=== PATIENT | female | born 1950 | race Caucasian/White ===

== ENCOUNTER 2017-06-03 09:37 | Day surgery (SDC) | payer OTHER, BC ==
[~2017-06-03] VITALS: Ht 162.6 cm; Wt 103.0 kg
[~2017-06-03 09:37] MED LIST: ADULT LOW DOSE81 M1 PO; AMITRIPTYLINE H25 MG PO; AMLODIPINE BESYL5 MG PO; ANASPAZ0.125 MG PO; ATORVASTATIN CA80 MG PO; BENADRYL25 MG PO; CALCIUM 600 +1 EACH PO; COZAAR50 MG PO; CRESTOR20 MG PO; DICYCLOMINE HCL20 MG PO; DYAZIDE, MA1 CAPSULE PO; EFFEXOR XR150 MG PO; ESCITALOPRAM OX10 MG PO; ESCITALOPRAM OX20 MG PO; HYDROCHLOROTH12.5 M1 PO; HYOSCYAMINE0.125 M2 PO; KEFLEX500 MG PO; LORAZEPAM0.5 MG PO; MELATONIN3 MG PO; METOPROLOL SUC100 MG PO; METOPROLOL SUCC50 MG PO; NEXIUM20 MG PO; NEXIUM40 MG PO; NITROSTAT0.4 MG SL; PYRIDIUM200 MG PO; RANITIDINE HCL300 MG PO; TRIAMTERENE-HC1 EACH PO; VESICARE5 MG PO; VITAMIN D2000 UNIT PO; VYTORIN 10-801 EACH PO
== END 2017-06-03 11:38 | disposition home or self-care (01) ==
LOC: PAIN 09:37 → SDC 10:15 → PAIN 11:38
DX: M47.26 Other spondylosis with radiculopathy, lumbar region (principal); M48.06 Spinal stenosis, lumbar region; I10 Essential (primary) hypertension; K21.9 Gastro-esophageal reflux disease without esophagitis; Z79.82 Long term (current) use of aspirin; E03.9 Hypothyroidism, unspecified; Z88.2 Allergy status to sulfonamides
CPT/HCPCS: J1100; J2250; J3010

== ENCOUNTER 2017-07-01 08:38 | Day surgery (SDC) | payer BC, OTHER ==
[~2017-07-01] VITALS: Ht 162.6 cm; Wt 104.3 kg
== END 2017-07-01 10:25 | disposition home or self-care (01) ==
LOC: PAIN 08:38 → SDC 09:15 → PAIN 09:15
PROC: 3E0T3CZ (ICD-10-PCS; principal; 2017-07-01)
PROC: 3E0T33Z Introduction of Anti-inflammatory into Peripheral Nerves and Plexi, Percutaneous Approach (ICD-10-PCS; principal; 2017-07-01)
DX: M47.26 Other spondylosis with radiculopathy, lumbar region (principal); F41.9 Anxiety disorder, unspecified; I12.9 Hypertensive chronic kidney disease with stage 1 through stage 4 chronic kidney disease, or unspecified chronic kidney disease; N18.3 Chronic kidney disease, stage 3 (moderate); K21.9 Gastro-esophageal reflux disease without esophagitis; E06.3 Autoimmune thyroiditis; E66.01 Morbid (severe) obesity due to excess calories; Z68.41 Body mass index [BMI] 40.0-44.9, adult; E78.5 Hyperlipidemia, unspecified; Z88.8 Allergy status to other drugs, medicaments and biological substances; Z91.09 Other allergy status, other than to drugs and biological substances
CPT/HCPCS: J1030; J2250; J3010; S0020

== ENCOUNTER 2017-07-12 09:00 | Day surgery (SDC) | payer BC, OTHER ==
[~2017-07-12] VITALS: Ht 161.3 cm; Wt 104.3 kg
[~2017-07-12 09:00] MED LIST changes: +TYLENOL EXTRA500 MG PO
== END 2017-07-12 11:43 | disposition home or self-care (01) ==
LOC: PAIN 09:00 → SDC 14:15
PROC: 3E0T3BZ Introduction of Anesthetic Agent into Peripheral Nerves and Plexi, Percutaneous Approach (ICD-10-PCS; principal; 2017-07-12)
PROC: 3E0T33Z Introduction of Anti-inflammatory into Peripheral Nerves and Plexi, Percutaneous Approach (ICD-10-PCS; 2017-07-12)
DX: M47.26 Other spondylosis with radiculopathy, lumbar region (principal); M41.9 Scoliosis, unspecified; F41.9 Anxiety disorder, unspecified; I12.9 Hypertensive chronic kidney disease with stage 1 through stage 4 chronic kidney disease, or unspecified chronic kidney disease; N18.3 Chronic kidney disease, stage 3 (moderate); E06.3 Autoimmune thyroiditis; E78.5 Hyperlipidemia, unspecified; K21.9 Gastro-esophageal reflux disease without esophagitis; E66.01 Morbid (severe) obesity due to excess calories; Z68.41 Body mass index [BMI] 40.0-44.9, adult; R73.03 Prediabetes; Z88.8 Allergy status to other drugs, medicaments and biological substances
CPT/HCPCS: J1030; J2250; J3010; S0020

== ENCOUNTER 2017-09-28 11:55 | Day surgery (SDC) | payer BC, OTHER ==
[~2017-09-28] VITALS: Ht 161.3 cm; Wt 104.4 kg
[~2017-09-28 11:55] MED LIST changes: +HYZAAR 50-121 TABLET PO
== END 2017-09-28 14:00 | disposition home or self-care (01) ==
LOC: PAIN 11:55 → SDC 12:30 → PAIN 12:30
DX: M47.26 Other spondylosis with radiculopathy, lumbar region (principal); M54.5 Low back pain; G89.29 Other chronic pain; M48.061 Spinal stenosis, lumbar region without neurogenic claudication; M41.9 Scoliosis, unspecified; F41.9 Anxiety disorder, unspecified; I12.9 Hypertensive chronic kidney disease with stage 1 through stage 4 chronic kidney disease, or unspecified chronic kidney disease; N18.3 Chronic kidney disease, stage 3 (moderate); K21.9 Gastro-esophageal reflux disease without esophagitis; E66.01 Morbid (severe) obesity due to excess calories; Z68.41 Body mass index [BMI] 40.0-44.9, adult; R73.03 Prediabetes; Z79.82 Long term (current) use of aspirin
CPT/HCPCS: J1030; J2250; J3010; S0020

== ENCOUNTER 2017-10-12 08:03 | Day surgery (SDC) | payer BC, OTHER ==
[~2017-10-12] VITALS: Ht 161.3 cm; Wt 105.2 kg
== END 2017-10-12 09:37 | disposition home or self-care (01) ==
LOC: PAIN 08:03 → SDC 08:45 → PAIN 09:37
DX: M47.26 Other spondylosis with radiculopathy, lumbar region (principal); M48.061 Spinal stenosis, lumbar region without neurogenic claudication; I12.9 Hypertensive chronic kidney disease with stage 1 through stage 4 chronic kidney disease, or unspecified chronic kidney disease; N18.3 Chronic kidney disease, stage 3 (moderate); E66.01 Morbid (severe) obesity due to excess calories; Z68.41 Body mass index [BMI] 40.0-44.9, adult; R73.03 Prediabetes; Z79.82 Long term (current) use of aspirin
CPT/HCPCS: J1030; J2250; J3010; S0020